=== PATIENT | male | born 1965 | race Hispanic/Latino ===

== ENCOUNTER 2017-08-29 17:02 | Inpatient (IN) | payer MEDICARE, OTHER ==
--- NOTE | 2017-08-29 17:19 | C.PDOC ---
History Of Present Illness 51 YO MALE REQUESTING DETOX FROM HEROIN, CRACK-COCAINE, AND ETOH. PT REPORTS USING HEROIN AND DRINKING ETOH THIS MORNING. PT C/O HEROIN AND ALCOHOL WITHDRAWAL SYMPTOMS. NO SI/HI. DENIES ANY OTHER COMPLAINTS. Time Seen by Provider: 08/29/17 17:19 Chief Complaint (Nursing): Substance Abuse History Per: Patient History/Exam Limitations: no limitations Current Symptoms Are (Timing): Still Present Modifying Factor(s): Alcohol, Marijuana, Narcotics, Crack Associated Symptoms: denies: Suicidal Thoughts, Suicidal Plan Recent travel outside of the [place]: No Past Medical History Reviewed: Historical Data, Nursing Documentation, Vital Signs Vital Signs: Last Vital Signs Temp 97.7 F 08/29/17 17:06 Pulse 80 08/29/17 18:09 Resp 18 08/29/17 18:09 BP 106/59 L 08/29/17 18:09 Pulse Ox 97 08/29/17 18:09 - Medical History PMH: Anxiety Family History: States: Unknown Family Hx - Social History Hx Alcohol Use: Yes Hx Substance Use: Yes - Immunization History Hx Tetanus Toxoid Vaccination: Yes Hx Influenza Vaccination: No Hx Pneumococcal Vaccination: No Review Of Systems Except As Marked, All Systems Reviewed And Found Negative. Constitutional: Negative for: Fever Cardiovascular: Negative for: Chest Pain Respiratory: Negative for: Cough, Shortness of Breath, Wheezing Gastrointestinal: Negative for: Nausea, Vomiting, Abdominal Pain Skin: Negative for: Rash Psych: Positive for: Withdrawal Physical Exam - Physical Exam Appears: Non-toxic, No Acute Distress Skin: Normal Color, Warm, Dry Head: Atraumatic, Normacephalic Oral Mucosa: Moist Chest: Symmetrical Cardiovascular: Rhythm Regular Respiratory: Normal Breath Sounds, No Rales, No Rhonchi, No Wheezing Gastrointestinal/Abdominal: Soft, No Tenderness, No Guarding, No Rebound Back: Normal Inspection Extremity: Normal ROM, Capillary Refill (< 2 SEC.) Neurological/Psych: Oriented x3, Other (PSYCH: MILD WITHDRAWAL SX, CALM, COOPERATIVE. ) ED Course And Treatment - Laboratory Results Result Diagrams: 08/29/17 17:46 08/29/17 17:46 O2 Sat by Pulse Oximetry: 97 (RA) Pulse Ox Interpretation: Normal Progress - Re-Evaluation Re-evaluation Note: 08/29/17 17:30 LIBRIUM, CLONIDINE, MOTRIN, ZOFRAN. CRISIS EVAL. Disposition - Disposition Disposition Time: 19:00 Condition: STABLE Forms: [facility] (Kazakh) - Clinical Impression Clinical Impression: Polysubstance abuse - Scribe Statement The provider has reviewed the documentation as recorded by the Scribe SM All medical record entries made by the Scribe were at my direction and personally dictated by me. I have reviewed the chart and agree that the record accurately reflects my personal performance of the history, physical exam, medical decision making, and the department course for this patient. I have also personally directed, reviewed, and agree with the discharge instructions and disposition. Physician Patient Turnover Patient Signed Over To: Vimal Batista Handoff Comments: BORIS MCCAIN
[2017-08-29 17:56] LABS: BASO # 0.1 K/uL (0.0-0.2); BASO % 0.5 % (0.0-2.0); EOS # 0.1 K/uL (0.0-0.7); EOS % 0.6 % (0.0-4.0); HEMATOCRIT 43.8 % (35.0-51.0); LYMPH # 2.1 K/uL (1.0-4.3); LYMPH % 17.7 % (20.0-40.0); MEAN CELL VOLUME 91.2 fL (80.0-94.0); MEAN CORPUSCULAR HGB CONC 32.9 g/dL (33.0-37.0); MEAN PLATELET VOLUME 7.5 fL (7.2-11.7); MONO # 0.8 K/uL (0.0-0.8); MONO % 6.6 % (0.0-10.0); NRBC % 0.1 % (0.0-2.0); RED CELL DISTRIBUTION WIDTH 14.2 % (11.5-14.5); WHITE BLOOD COUNT 11.6 K/uL (4.8-10.8)
[2017-08-29 18:12] LABS: CHLORIDE 100 mmol/L (98-107)
[2017-08-29 18:13] LABS: SODIUM 136 mmol/L (132-148)
[2017-08-29 18:14] LABS: POTASSIUM 3.6 mmol/L (3.6-5.2)
[2017-08-29 18:16] LABS: ALB/GLOB RATIO 1.3 (1.0-2.1); ALKALINE PHOSPHATASE 112 U/L (38-126); ALT/SGPT 38 U/L (21-72); AST/SGOT 38 U/L (17-59); BILIRUBIN,TOTAL 0.6 mg/dL (0.2-1.3); BLOOD UREA NITROGEN 19 mg/dL (9-20); CALCIUM 8.3 mg/dl (8.6-10.4); CARBON DIOXIDE 25 mmol/L (22-30); GFR AFRICAN-AMERICAN > 60; GLUCOSE,RANDOM 77 mg/dL (75-110); TOTAL PROTEIN 7.4 g/dL (6.3-8.3)
[2017-08-29 18:17] LABS: ALCOHOL SERUM 76 mg/dl (0-10)
[2017-08-29 22:07] LABS: RBC URINE < 1 /hpf (0-3); URINE BACTERIA RARE (<OCC); URINE BILIRUBIN NEGATIVE (NEGATIVE); URINE BLOOD NEGATIVE (NEGATIVE); URINE CALCIUM OXALATE CRYSTALS RARE /hpf (<OCC); URINE COLOR Yellow (YELLOW); URINE GLUCOSE (UA) NORMAL (Normal); URINE KETONE TRACE mg/dL (NEGATIVE); URINE LEUKOCYTE ESTERASE NEG Leu/uL (Negative); URINE PROTEIN NEGATIVE (NEGATIVE); WBC URINE 2 /hpf (0-5)
--- NOTE | 2017-08-30 00:31 | PCM.BM ---
<Carmen Hensley M - Last Filed: 08/30/17 00:30> Treatment Plan Problems - Problems identified on initial assessmt Ineffective Coping Skills Date Initiated: 08/30/17 Time Initiated: 00:30 Assessment reference: NA Status: Active Treatment assets and liabiliti Patient Assests: ADL independent Patient Liabilities: substance abuse - Milieu Protocol Maintain good personal hygiene: daily Encourage regular showers, daily Remind patient to perform daily oral care, other Assist patient to perform ADL's Maintain personal safety: every shift Educate patient to report safety concerns to staff, every shift Monitor environment for contraband/sharps Medication safety: Monitor for expected outcome, potential side effects: every shift, Assess barriers to learning: every shift, Assess readiness for medication education: every shift <Radha Grant - Last Filed: 08/30/17 13:23> - Diagnosis (1) Opioid use disorder, severe, dependence Status: Acute Interventions: 08/30/17 13:23 * Assess 7x/week regarding severity of withdrawal * Educate regarding risks, benefits, side effects and alternatives of medications * Use Motivational Interviewing for abstinence * Use CBT for relapse prevention * Medication management for withdrawal symptoms * Encourage medication assisted treatment * (2) Alcohol use disorder, severe, dependence Status: Acute Interventions: 08/30/17 13:23 * Assess 7x/week regarding severity of withdrawal * Educate regarding risks, benefits, side effects and alternatives of medications * Use Motivational Interviewing for abstinence * Use CBT for relapse prevention * Medication management for withdrawal symptoms * Encourage medication assisted treatment *
[2017-08-30] MEDS ORDERED: Aluminum Hydroxide/Magnesium Hydroxide Susp (30 mL) PO PRN (10:20)
[2017-08-30] MEDS: Multiple Vitamins Tab PO SCH (11:03)
--- NOTE | 2017-08-30 14:28 | PCM.PSYCH ---
Initial Psychiatric Evaluation - Initial Psychiatric Evaluation Type of Admission: Voluntary Legal Status: Capacity Chief Complaint (in patient's own words): "Heroin and alcohol" History of Present Illness and Precipitating Events: The pt is seen, chart reviewed, case discussed with staff. Patient is a 52 YO unemployed male who lives with his mother in [place]. Patient has a girlfriend and 2 children ages 11 and 13 who stay with their mother. Girlfriend is not sober. Patient reports using 15 bags of IV heroin per day for the last 10 years. Patient also reports 1/2 pint of alcohol per day for a "couple of years." Patient uses cocaine, intra-nasally, IV, and smoking for a number of years. Patient admits to 1-2 Xanax/day. Patient reports marijuana use, last use was a few days ago. Patient smokes 1 pack of cigarettes per day. Patient tried detox once before about 20 years ago. Patient tried rehab 5 years ago. He was attending methadone clinic [facility] until he went to custodial. Patient is currently on probation. Patient was abstinent from drugs and alcohol for 11 months, his longest period sober. Patient appeared to be experiencing withdrawal symptoms during interview. Patient also appeared drowsy and lethargic. Psych hx: denies PMH: +hep C Family hx: denies Current Medications: Active Medications Generic Name Dose Route Start Last Admin Trade Name Freq PRN Reason Stop Dose Admin Al Hydrox/Mg Hydrox/Simethicone 30 ml 08/30/17 10:20 Maalox 30 Ml PO TID PRN Indigestion / Heartburn Chlordiazepoxide 25 mg 08/30/17 10:19 Librium PO Q4H PRN Alcohol Withdrawal Chlordiazepoxide 25 mg 08/30/17 12:00 08/30/17 11:03 Librium PO 09/03/17 11:59 25 mg Q6 MARÍA Administration Taper Clonidine HCl 0.1 mg 08/30/17 10:19 Catapres PO Q4H PRN Symptoms of alcohol withdrawl Folic Acid 1 mg 08/30/17 10:30 08/30/17 11:03 Folic Acid PO 1 mg DAILY MARÍA Administration Gabapentin 400 mg 08/30/17 14:00 08/30/17 14:20 Neurontin PO 400 mg TID MARÍA Administration Hydroxyzine HCl 50 mg 08/30/17 10:21 Atarax PO Q6H PRN Anxiety Ibuprofen 600 mg 08/30/17 10:21 Motrin Tab PO Q6H PRN Pain, moderate (4-7) Loperamide HCl 2 mg 08/30/17 10:20 Imodium PO Q8 PRN Diarrhea Methadone HCl 10 mg 08/30/17 17:00 Methadone PO 08/30/17 17:01 ONCE ONE Methadone HCl 25 mg 08/31/17 10:00 Methadone PO 09/05/17 09:59 Q24H MARÍA Taper Multivitamins 1 tab 08/30/17 10:30 08/30/17 11:03 Hexavitamin PO 1 tab DAILY MARÍA Administration Nicotine 1 patch 08/30/17 11:30 08/30/17 12:05 Nicoderm Cq TD 1 patch DAILY MARÍA Administration Ondansetron HCl 4 mg 08/30/17 10:20 Zofran Tab PO Q8 PRN Nausea/Vomiting Thiamine HCl 100 mg 08/30/17 10:30 08/30/17 11:03 Vitamin B1 Tab PO 100 mg DAILY MARÍA Administration Trazodone HCl 50 mg 08/30/17 10:19 Desyrel PO HS PRN Insomnia Past Psychiatric History - Past Psychiatric History Previous Treatment History: None History of ETOH/Drug Use: See HPI Pertinent Medical Hx (Current Medical&Sleep Prob, Allergies): Allergies Allergy/AdvReac Type Severity Reaction Status Date / Time No Known Allergies Allergy Verified 08/29/17 17:10 No Known Home Med 08/29/17 PMH: +HEP C Review of Systems - Review of Systems Systems not reviewed;Unavailable: Acuity of Condition - Psychiatric Psychiatric: As Per HPI, Difficulty Concentrating Mental Status Examination - Personal Presentation Personal Presentation: Looks older than stated age - Affect Affect: Constricted - Motor Activity Motor Activity: Calm - Reliability in Providing Information Reliability in Providing Information: Fair - Speech Speech: Organized - Mood Mood: Neutral - Formal Thought Process Formal Thought Process: No Impairment - Obsessions/Compulsions Obsessions: None Compulsions: None - Cognitive Functions Orientation: Person, Place, Situation, Time Sensorium: Drowsy, Lethargic Estimate of Intelligence: Average Judgement: Intact, as evidence by: Insight regarding need for hospitalization Memory: Recent intact, as evidence by: Ability to recall events of the day - Risk Risk: Withdrawal, Falls DSM 5 DX - DSM 5 DSM 5 Diagnosis: Opioid use disorder severe Alcohol use disorder severe Cocaine use disorder severe Opioid withdrawal Alcohol withdrawal Cocaine withdrawal - Recommended/Plan of Treatment Treatment Recommendations and Plan of Treatment: Methadone detox Librium detox for alcohol As needed medications Gabapentin for augmentation Nicotine patch for smoking cessation. Attend groups and activities Supportive therapy and psychoeducation CO for abstinence CBT for relapse prevention Encourage MAT Refer to rehab or IOP Attend self-help groups as well 34 min Projected ELOS: 5-6 days Prognosis: good with treatment - Smoking Cessation Smoking Cessation Initiated: Yes
[2017-08-31] MEDS: Multiple Vitamins Tab PO SCH (09:49)
--- NOTE | 2017-08-31 13:09 | PCM.PYCHPN ---
Psychiatric Progress Note - Psychiatric Progress Note Patient seen today, length of contact: 16 mins Patient Chief Complaint: "I feel alright " Problems Identified/Issues Discussed: Patient appears less drowsy and more alert. The pt is seen, chart reviewed, case discussed with staff. Support given, CBT, and AR used briefly Improving slowly and needs more time. No SEs from medications, risks discussed. After care discussed- patient wants to go to inpatient rehab . Medication Change: Yes (detox changes daily ) Medical Record Reviewed: Yes Mental Status Examination - Cognitive Function Orientation: Person, Place, Situation, Time Attention: WNL Concentration: WNL Association: WNL Fund of Knowledge: WNL - Mood Mood: Neutral - Affect Affect: Constricted - Speech Speech: Appropriate - Language Language: Word Retrieval - Formal Thought Process Formal Thought Process: No Impairment - Suicidal Ideation Suicidal Ideation: No - Homicidal Ideation Homicidal Ideation: No Goal/Treatment Plan - Goal/Treatment Plan Need for Continued Stay: Remain at risks for inpatient hospitalization, Discharge may exacerbated symptoms Progress Toward Problem(s) and Goals/Treatment Plan: continue methadone detox continue medications support and psychoeducation daily attend groups and activities daily after care planning by Sean - Smoking Cessation Smoking Cessation Initiated: Yes
[2017-09-01] MEDS: Multiple Vitamins Tab PO SCH (09:03)
--- NOTE | 2017-09-01 14:13 | PCM.PYCHPN ---
Psychiatric Progress Note - Psychiatric Progress Note Patient seen today, length of contact: 16 mins Patient Chief Complaint: "I don't feel well" Problems Identified/Issues Discussed: Patient appears less drowsy and more alert. Patient was tearful about the choices he has made. The pt is seen, chart reviewed, case discussed with staff. Support given, CBT, and OK used briefly Improving slowly and needs more time. No SEs from medications, risks discussed. After care discussed- patient wants to try short term inpatient rehab . Medication Change: Yes (detox changes daily ) Medical Record Reviewed: Yes Mental Status Examination - Cognitive Function Orientation: Person, Place, Situation, Time Attention: WNL Concentration: WNL Association: WNL Fund of Knowledge: WNL - Mood Mood: Depressed (tearful ) - Affect Affect: Constricted - Speech Speech: Appropriate - Language Language: Word Retrieval - Formal Thought Process Formal Thought Process: No Impairment - Suicidal Ideation Suicidal Ideation: No - Homicidal Ideation Homicidal Ideation: No Goal/Treatment Plan - Goal/Treatment Plan Need for Continued Stay: Remain at risks for inpatient hospitalization, Discharge may exacerbated symptoms, Severe functional impairment Progress Toward Problem(s) and Goals/Treatment Plan: continue methadone detox continue medications support and psychoeducation daily attend groups and activities daily after care planning by Sean
[2017-09-01 17:21] VITALS: RESP 18
--- NOTE | 2017-09-01 19:08 | RAD ---
HISTORY: Discharge requirement COMPARISON: No prior. TECHNIQUE: Chest PA and lateral FINDINGS: LUNGS: No evidence of focal infiltrate or consolidation in the lungs. PLEURA: No significant pleural effusion identified. No pneumothorax apparent. CARDIOVASCULAR: Normal. OSSEOUS STRUCTURES: No significant abnormalities. VISUALIZED UPPER ABDOMEN: Normal. OTHER FINDINGS: None. IMPRESSION: No active disease.
[2017-09-02] MEDS: Multiple Vitamins Tab PO SCH (09:22)
--- NOTE | 2017-09-02 10:32 | PCM.PYCHPN ---
Psychiatric Progress Note - Psychiatric Progress Note Patient seen today, length of contact: 16 mins Patient Chief Complaint: I am still withdrawing . Problems Identified/Issues Discussed: Patient seen and evaluated, chart reviewed and discussed with the nurse. The patient reports improvement in his mood but still reports withdrawal symptoms including shakes, anxiety, headaches and sweating. As per the nurse patient is improving but still reports of anxiety. Patient has some anxiety and denies any suicidal ideation or homicidal ideation. Patient is taking medications and denies any side effects. He needs more time to stabilize. He received methadone 15 mg daily Supportive therapy and psychoeducation were given. Medication Change: Yes (detox changes daily ) Medical Record Reviewed: Yes Mental Status Examination - Cognitive Function Orientation: Person, Place, Situation, Time Attention: WNL Concentration: WNL Association: WNL Fund of Knowledge: WNL - Mood Mood: Depressed (tearful ) - Affect Affect: Constricted - Speech Speech: Appropriate - Language Language: Word Retrieval - Formal Thought Process Formal Thought Process: No Impairment - Suicidal Ideation Suicidal Ideation: No - Homicidal Ideation Homicidal Ideation: No Goal/Treatment Plan - Goal/Treatment Plan Need for Continued Stay: Remain at risks for inpatient hospitalization, Discharge may exacerbated symptoms, Severe functional impairment Progress Toward Problem(s) and Goals/Treatment Plan: continue methadone detox continue medications support and psychoeducation daily attend groups and activities daily after care planning by - Smoking Cessation Smoking Cessation Initiated: No
[2017-09-02 11:43] LABS: CHLORIDE 96 mmol/L (98-107); POTASSIUM 4.8 mmol/L (3.6-5.2); SODIUM 131 mmol/L (132-148)
[2017-09-02 11:45] LABS: ALB/GLOB RATIO 0.9 (1.0-2.1); ALKALINE PHOSPHATASE 105 U/L (38-126); ALT/SGPT 41 U/L (21-72); AST/SGOT 26 U/L (17-59); BILIRUBIN,TOTAL 0.4 mg/dL (0.2-1.3); BLOOD UREA NITROGEN 18 mg/dL (9-20); CARBON DIOXIDE 26 mmol/L (22-30); GFR AFRICAN-AMERICAN > 60; TOTAL PROTEIN 8.5 g/dL (6.3-8.3)
[2017-09-02 11:46] LABS: CALCIUM 9.1 mg/dl (8.6-10.4); GLUCOSE,RANDOM 96 mg/dL (75-110); MAGNESIUM 1.8 mg/dL (1.6-2.3); PHOSPHOROUS 2.3 mg/dL (2.5-4.5)
[2017-09-02 11:56] LABS: VITAMIN D 25 OH TOTAL 24.3 NG/ML (30.0-100.0)
[2017-09-02 12:15] LABS: THYROID STIMULATING HORMONE 1.76 mIU/L (0.46-4.68)
[2017-09-02] MEDS: Tmp-Smz 800 mg-160 mg DS Tab PO SCH (13:14)
--- NOTE | 2017-09-02 13:16 | CP.PCM.CON ---
History of Present Illness - History of Present Illness History of Present Illness: Medicine H/P CC: R. Knee Abscess HPI: Patient is a 51 year old male with PMH of polysubstance abuse presents with low grade fever and abscess located medial to the right knee. Patient is currently in the detox unit for heroin and alcohol abuse. Patient states the abscess has been present for 3-4 days. A sharp pain occurs around the abscess when he gets up from a sitting position. The pain lasts for a few seconds and does not radiate. Patient reports using heroin around the abscess area. Patient states he had similar abscess for the past 1.5 year but located in different extremities. Patient reports chills and low grade fever this morning but felt better after methadone was administered. Patient denies chest pain and problem with ambulation. ROS: General: Admits to fever, chills, headache, dizziness. Ears: Admits to discharge from left ear. CV: Denies chest pain or palpitation. Lungs: Denies SOB. GI: Denies abd pain, nausea, vomiting, constipation, or diarrhea. PMH: polysubstance abuse FH: mother had quadruple bypass SH: * unemployed * Tobacco: 1 ppd for 41 years. * Alcohol: _ pint of vodka and 6-12 beers a day. * Admits to heroin, crack, cocaine, marijuana abuse. Meds: none Allergies: NKDA ROS: General: Admits to fever, chills, headache, dizziness. Ears: Admits to discharge from left ear. CV: Denies chest pain or palpitation. Lungs: Denies SOB. GI: Denies abd pain, nausea, vomiting, constipation, or diarrhea. Review of Systems - Review of Systems Review of Systems: per hpi Past Patient History - Past Medical History & Family History Past Medical History?: Yes - Past Social History Smoking Status: Heavy Smoker > 10 Cigarettes Daily - CARDIAC Hx Cardiac Disorders: No Hx Hypertension: No - PULMONARY Hx Respiratory Disorders: No Hx Tuberculosis: No - NEUROLOGICAL Hx Neurological Disorder: No HX Cerebrovascular Accident: No Hx Seizures: No - HEENT Hx HEENT Problems: No - RENAL Hx Chronic Kidney Disease: No - ENDOCRINE/METABOLIC Hx Endocrine Disorders: No - HEMATOLOGICAL/ONCOLOGICAL Hx Blood Disorders: No Hx Cancer: No Hx Human Immunodeficiency Virus (HIV): No - INTEGUMENTARY Hx Dermatological Problems: No - MUSCULOSKELETAL/RHEUMATOLOGICAL Hx Falls: Yes - GASTROINTESTINAL Hx Gastrointestinal Disorders: No - GENITOURINARY/GYNECOLOGICAL Hx Genitourinary Disorders: No Hx Sexually Transmitted Disorders: No - PSYCHIATRIC Hx Substance Use: Yes - SURGICAL HISTORY Hx Surgeries: Yes Hx Orthopedic Surgery: Yes (RIGHT ANKLE) - ANESTHESIA Hx Anesthesia: Yes Hx Anesthesia Reactions: No Hx Malignant Hyperthermia: No Has any member of the family had a problem w/ anesthesia?: No Meds Allergies/Adverse Reactions: Allergies Allergy/AdvReac Type Severity Reaction Status Date / Time No Known Allergies Allergy Verified 08/29/17 17:10 - Medications Medications: Current Medications Al Hydrox/Mg Hydrox/Simethicone (Maalox 30 Ml) 30 ml PO TID PRN PRN Reason: Indigestion / Heartburn Chlordiazepoxide (Librium) 25 mg PO Q4H PRN PRN Reason: Alcohol Withdrawal Last Admin: 09/02/17 05:29 Dose: 25 mg Chlordiazepoxide (Librium) 25 mg PO DAILY REPLACED BY [facility] PRN Reason: Taper Stop: 09/03/17 11:59 Last Admin: 09/02/17 09:23 Dose: 25 mg Clonidine HCl (Catapres) 0.1 mg PO Q4H PRN PRN Reason: Symptoms of alcohol withdrawl Folic Acid (Folic Acid) 1 mg PO DAILY REPLACED BY [facility] Last Admin: 09/02/17 09:23 Dose: 1 mg Gabapentin (Neurontin) 400 mg PO TID REPLACED BY [facility] Last Admin: 09/02/17 09:23 Dose: 400 mg Hydroxyzine HCl (Atarax) 50 mg PO Q6H PRN PRN Reason: Anxiety Last Admin: 09/01/17 01:19 Dose: 50 mg Ibuprofen (Motrin Tab) 600 mg PO Q6H PRN PRN Reason: Pain, moderate (4-7) Last Admin: 09/02/17 10:05 Dose: 600 mg Loperamide HCl (Imodium) 2 mg PO Q8 PRN PRN Reason: Diarrhea Methadone HCl (Methadone) 15 mg PO Q24H REPLACED BY [facility] PRN Reason: Taper Stop: 09/05/17 09:59 Last Admin: 09/02/17 09:23 Dose: 15 mg Multivitamins (Hexavitamin) 1 tab PO DAILY REPLACED BY [facility] Last Admin: 09/02/17 09:22 Dose: 1 tab Nicotine (Nicoderm Cq) 1 patch TD DAILY REPLACED BY [facility] Last Admin: 09/02/17 09:21 Dose: 1 patch Ondansetron HCl (Zofran Tab) 4 mg PO Q8 PRN PRN Reason: Nausea/Vomiting Last Admin: 09/02/17 05:29 Dose: 4 mg Quetiapine Fumarate (Seroquel) 100 mg PO HS REPLACED BY [facility] Last Admin: 09/01/17 22:22 Dose: 100 mg Thiamine HCl (Vitamin B1 Tab) 100 mg PO DAILY REPLACED BY [facility] Last Admin: 09/02/17 09:23 Dose: 100 mg Trazodone HCl (Desyrel) 100 mg PO HS PRN PRN Reason: Insomnia Last Admin: 09/01/17 22:22 Dose: 100 mg Trimethoprim/Sulfamethoxazole (Bactrim Ds Tab) 1 tab PO Q12H REPLACED BY [facility] Stop: 09/11/17 12:20 Physical Exam - Constitutional Appears: Well, Non-toxic, No Acute Distress - Head Exam Head Exam: ATRAUMATIC, NORMAL INSPECTION, NORMOCEPHALIC - Eye Exam Eye Exam: EOMI Pupil Exam: NORMAL ACCOMODATION - ENT Exam ENT Exam: Mucous Membranes Moist - Neck Exam Neck exam: Positive for: Normal Inspection - Respiratory Exam Respiratory Exam: Clear to Auscultation Bilateral, NORMAL BREATHING PATTERN - Cardiovascular Exam Cardiovascular Exam: REGULAR RHYTHM - GI/Abdominal Exam GI & Abdominal Exam: Normal Bowel Sounds, Soft. absent: Distended, Tenderness - Extremities Exam Extremities exam: Positive for: tenderness (mild tenderness to palpation of right kneww at fluid collection. Increased warmth and erythema. Fluctuance. ). Negative for: joint swelling - Back Exam Back exam: absent: CVA tenderness (L), CVA tenderness (R) - Neurological Exam Neurological exam: Alert, Normal Gait, Oriented x3 - Psychiatric Exam Psychiatric exam: Normal Affect, Normal Mood - Skin Skin Exam: Dry, Intact, Warm Additional comments: areas of hypopigmentation Results - Vital Signs Recent Vital Signs: Last Vital Signs Temp 99.3 F 09/02/17 09:56 Pulse 100 H 09/02/17 09:56 Resp 18 09/02/17 09:56 BP 126/76 09/02/17 09:56 Pulse Ox 95 09/02/17 09:56 - Labs Result Diagrams: 08/29/17 17:46 09/02/17 11:13 Labs: Laboratory Results - last 24 hr 09/02/17 09/02/17 11:13 11:13 Sodium 131 L Potassium 4.8 Chloride 96 L Carbon Dioxide 26 Anion Gap 14 BUN 18 Creatinine 0.7 L Est GFR ( Amer) > 60 Est GFR (Non-Af Amer) > 60 Random Glucose 96 Calcium 9.1 Phosphorus 2.3 L Magnesium 1.8 Total Bilirubin 0.4 AST 26 ALT 41 Alkaline Phosphatase 105 Total Protein 8.5 H Albumin 4.1 Globulin 4.4 H Albumin/Globulin Ratio 0.9 L Vitamin B12 362 25-OH Vitamin D Total 24.3 L TSH 3rd Generation 1.76 Assessment & Plan (1) Abscess of knee, right Assessment and Plan: Bactrim DS 1 Tab PO Q12 x 10 days warm compress Q2 consider I/D later today or tomorrow Status: Acute Priority: Medium
[2017-09-03] MEDS: Tmp-Smz 800 mg-160 mg DS Tab PO SCH ×2 (01:27→13:08)
[2017-09-03] MEDS: Multiple Vitamins Tab PO SCH (09:22)
[2017-09-03] MEDS ORDERED: Ergocalciferol 50,000 Intl Units Cap PO SCH (10:00)
--- NOTE | 2017-09-03 10:57 | PCM.PYCHPN ---
Psychiatric Progress Note - Psychiatric Progress Note Patient seen today, length of contact: 16 mins Patient Chief Complaint: "I am feeling little better.' Problems Identified/Issues Discussed: Patient seen and evaluated, chart reviewed and discussed with the nurse. Pt was seen by the medical doctor yesterday for the skin rash. He reports some improvement in his withdrawal symptoms but still reports anxiety, headaches and sweating. He denies any suicidal ideation or homicidal ideation. Patient is taking medications and denies any side effects. He received methadone 10 mg today. He needs more time to stabilize. Supportive therapy and psychoeducation were given. Medication Change: Yes (detox changes daily ) Medical Record Reviewed: Yes Mental Status Examination - Cognitive Function Orientation: Person, Place, Situation, Time Attention: WNL Concentration: WNL Association: WNL Fund of Knowledge: WNL - Mood Mood: Depressed (tearful ) - Affect Affect: Constricted - Speech Speech: Appropriate - Language Language: Word Retrieval - Formal Thought Process Formal Thought Process: No Impairment - Suicidal Ideation Suicidal Ideation: No - Homicidal Ideation Homicidal Ideation: No Goal/Treatment Plan - Goal/Treatment Plan Need for Continued Stay: Remain at risks for inpatient hospitalization, Discharge may exacerbated symptoms, Severe functional impairment Progress Toward Problem(s) and Goals/Treatment Plan: continue methadone detox continue medications support and psychoeducation daily attend groups and activities daily after care planning by - Smoking Cessation Smoking Cessation Initiated: No
--- NOTE | 2017-09-03 11:44 | CP.PCM.PN ---
<Naveen Griggs - Last Filed: 09/03/17 13:33> Subjective - Date & Time of Evaluation Date of Evaluation: 09/03/17 Time of Evaluation: 11:40 - Subjective Subjective: Patient seen and examined at bedside. Doing well with no complaints at this time. Knee pain has improved significantly Denies fevers or chills We will sign off at this time. Objective - Vital Signs/Intake and Output Vital Signs (last 24 hours): Temp Pulse Resp BP Pulse Ox 98.0 F 96 H 18 111/69 96 09/03/17 09:00 09/03/17 09:00 09/03/17 09:00 09/03/17 09:00 09/03/17 09:00 - Medications Medications: Current Medications Al Hydrox/Mg Hydrox/Simethicone (Maalox 30 Ml) 30 ml PO TID PRN PRN Reason: Indigestion / Heartburn Chlordiazepoxide (Librium) 25 mg PO Q4H PRN PRN Reason: Alcohol Withdrawal Last Admin: 09/02/17 21:06 Dose: 25 mg Chlordiazepoxide (Librium) 25 mg PO DAILY [facility] PRN Reason: Taper Stop: 09/03/17 11:59 Last Admin: 09/03/17 09:22 Dose: 25 mg Clonidine HCl (Catapres) 0.1 mg PO Q4H PRN PRN Reason: Symptoms of alcohol withdrawl Ergocalciferol (Drisdol 50,000 Intl Units Cap) 1 cap PO Q7D [facility] Last Admin: 09/03/17 09:26 Dose: 1 cap Folic Acid (Folic Acid) 1 mg PO DAILY [facility] Last Admin: 09/03/17 09:23 Dose: 1 mg Gabapentin (Neurontin) 400 mg PO TID [facility] Last Admin: 09/03/17 09:22 Dose: 400 mg Hydroxyzine HCl (Atarax) 50 mg PO Q6H PRN PRN Reason: Anxiety Last Admin: 09/01/17 01:19 Dose: 50 mg Ibuprofen (Motrin Tab) 600 mg PO Q6H PRN PRN Reason: Pain, moderate (4-7) Last Admin: 09/02/17 21:06 Dose: 600 mg Loperamide HCl (Imodium) 2 mg PO Q8 PRN PRN Reason: Diarrhea Methadone HCl (Methadone) 10 mg PO Q24H [facility] PRN Reason: Taper Stop: 09/05/17 09:59 Last Admin: 09/03/17 09:23 Dose: 10 mg Multivitamins (Hexavitamin) 1 tab PO DAILY [facility] Last Admin: 09/03/17 09:22 Dose: 1 tab Nicotine (Nicoderm Cq) 1 patch TD DAILY [facility] Last Admin: 09/03/17 09:23 Dose: 1 patch Ondansetron HCl (Zofran Tab) 4 mg PO Q8 PRN PRN Reason: Nausea/Vomiting Last Admin: 09/03/17 09:22 Dose: 4 mg Quetiapine Fumarate (Seroquel) 100 mg PO HS [facility] Last Admin: 09/02/17 21:06 Dose: 100 mg Thiamine HCl (Vitamin B1 Tab) 100 mg PO DAILY [facility] Last Admin: 09/03/17 09:22 Dose: 100 mg Trazodone HCl (Desyrel) 100 mg PO HS PRN PRN Reason: Insomnia Last Admin: 09/02/17 21:06 Dose: 100 mg Trimethoprim/Sulfamethoxazole (Bactrim Ds Tab) 1 tab PO Q12H [facility] Stop: 09/11/17 12:20 Last Admin: 09/03/17 01:27 Dose: 1 tab - Labs Labs: 08/29/17 17:46 09/02/17 11:13 - Additional Findings Additional findings: - Constitutional Appears: Well, Non-toxic, No Acute Distress - Head Exam Head Exam: ATRAUMATIC, NORMAL INSPECTION, NORMOCEPHALIC - Eye Exam Eye Exam: EOMI Pupil Exam: NORMAL ACCOMODATION - ENT Exam ENT Exam: Mucous Membranes Moist - Neck Exam Neck exam: Positive for: Normal Inspection - Respiratory Exam Respiratory Exam: Clear to Auscultation Bilateral, NORMAL BREATHING PATTERN - Cardiovascular Exam Cardiovascular Exam: REGULAR RHYTHM - GI/Abdominal Exam GI & Abdominal Exam: Normal Bowel Sounds, Soft. absent: Distended, Tenderness - Extremities Exam Extremities exam: Positive for: tenderness (mild tenderness to palpation of right kneww at fluid collection. Increased warmth and erythema. Fluctuance. ). Negative for: joint swelling - Back Exam Back exam: absent: CVA tenderness (L), CVA tenderness (R) - Neurological Exam Neurological exam: Alert, Normal Gait, Oriented x3 - Psychiatric Exam Psychiatric exam: Normal Affect, Normal Mood - Skin Skin Exam: Dry, Intact, Warm Additional comments: areas of hypopigmentation Assessment and Plan (1) Abscess of knee, right Assessment & Plan: Abscess of knee, right Assessment and Plan: Bactrim DS 1 Tab PO Q12 x 10 days warm compress Q2 Signing off, Please reconsult if necessary Status: Acute Priority: Medium Status: Acute <AnaDavin H - Last Filed: 09/03/17 13:46> Objective - Vital Signs/Intake and Output Vital Signs (last 24 hours): Temp Pulse Resp BP Pulse Ox 98.0 F 96 H 18 111/69 96 09/03/17 09:00 09/03/17 09:00 09/03/17 09:00 09/03/17 09:00 09/03/17 09:00 - Medications Medications: Current Medications Al Hydrox/Mg Hydrox/Simethicone (Maalox 30 Ml) 30 ml PO TID PRN PRN Reason: Indigestion / Heartburn Chlordiazepoxide (Librium) 25 mg PO Q4H PRN PRN Reason: Alcohol Withdrawal Last Admin: 09/03/17 13:10 Dose: 25 mg Clonidine HCl (Catapres) 0.1 mg PO Q4H PRN PRN Reason: Symptoms of alcohol withdrawl Ergocalciferol (Drisdol 50,000 Intl Units Cap) 1 cap PO Q7D [facility] Last Admin: 09/03/17 09:26 Dose: 1 cap Folic Acid (Folic Acid) 1 mg PO DAILY [facility] Last Admin: 09/03/17 09:23 Dose: 1 mg Gabapentin (Neurontin) 400 mg PO TID [facility] Last Admin: 09/03/17 13:08 Dose: 400 mg Hydroxyzine HCl (Atarax) 50 mg PO Q6H PRN PRN Reason: Anxiety Last Admin: 09/01/17 01:19 Dose: 50 mg Ibuprofen (Motrin Tab) 600 mg PO Q6H PRN PRN Reason: Pain, moderate (4-7) Last Admin: 09/02/17 21:06 Dose: 600 mg Loperamide HCl (Imodium) 2 mg PO Q8 PRN PRN Reason: Diarrhea Methadone HCl (Methadone) 10 mg PO Q24H [facility] PRN Reason: Taper Stop: 09/05/17 09:59 Last Admin: 09/03/17 09:23 Dose: 10 mg Multivitamins (Hexavitamin) 1 tab PO DAILY [facility] Last Admin: 09/03/17 09:22 Dose: 1 tab Nicotine (Nicoderm Cq) 1 patch TD DAILY [facility] Last Admin: 09/03/17 09:23 Dose: 1 patch Ondansetron HCl (Zofran Tab) 4 mg PO Q8 PRN PRN Reason: Nausea/Vomiting Last Admin: 09/03/17 09:22 Dose: 4 mg Quetiapine Fumarate (Seroquel) 100 mg PO HS [facility] Last Admin: 09/02/17 21:06 Dose: 100 mg Thiamine HCl (Vitamin B1 Tab) 100 mg PO DAILY [facility] Last Admin: 09/03/17 09:22 Dose: 100 mg Trazodone HCl (Desyrel) 100 mg PO HS PRN PRN Reason: Insomnia Last Admin: 09/02/17 21:06 Dose: 100 mg Trimethoprim/Sulfamethoxazole (Bactrim Ds Tab) 1 tab PO Q12H [facility] Stop: 09/11/17 12:20 Last Admin: 09/03/17 13:08 Dose: 1 tab - Labs Labs: 08/29/17 17:46 09/02/17 11:13 Attending/Attestation - Attestation I have personally seen and examined this patient.: Yes I have fully participated in the care of the patient.: Yes I have reviewed all pertinent clinical information, including history, physical exam and plan: Yes Notes (Text): 09/03/17 13:45 Medical attending: Patient was seen and examamined by me He is able to walk in the hallway without assistance. On exam I pushed out a little bit more clear puss colored discharged however very minimal amount. It does not look like this is something that could be lanced or drained. Please continue the warm compresses as well as continue with the PO bactrim thank you Davin Perez
[2017-09-04] MEDS: Tmp-Smz 800 mg-160 mg DS Tab PO SCH (00:45)
[2017-09-04 08:41] VITALS: BP 105/68; PULSE 92; TEMP 98; O2SAT 99
--- NOTE | 2017-09-04 08:49 | PCM.PYCHDC ---
Mental Status Examination - Mental Status Examination Orientation: Person, Place, Situation, Time Memory: Intact Mood: Neutral Affect: Blunted Speech: Appropriate Attention: WNL Concentration: WNL Association: WNL Fund of Knowledge: WNL Formal Thought Process: No Impairment Description of patient's judgement and insight: appropriate Suicidal Ideation: No Current Homicidal Ideation?: No Discharge Summary - Discharge Note Reason for Hospitalization: opioid , alcohol and cocaine detox Laboratory Data: Abnormal Lab Results 09/02/17 11:13 HIV 1&2 Antibody Screen Negative Consultations:: List each consultation separately and include: 1. Reason for request. 2. Findings. 3. Follow-up Summary of Hospital Course include:: 1. Description of specific treatment plan utilized for patients during their course of treatmen. 2. Summarize the time- course for resolution of acute symptoms and/or regressed behaviors. 3. Describe issues identified and worked on during hospitalization. 4. Describe medication utilized. 5. Describe medical problems identified and treated. 6. Reassessment of suicide risk Summary of Hospital Course: Patient was admitted and started on treatment with psychotherapy, support, psychoeducation and medications including methadone taper, clonidine 1MG po q4h PRN, Lexapro 10mh po daily, neurontin 400mg po TID, atarax 50 mg po q6h prn, trazadone 100mg PO HS, Librium taper, Maalox 30 ml PO TID, Quetiapine 100mg. [place] and CBT used. Patient attended groups and activities, as well as mileu therapy. All the risks and benefits of medications are discussed with patient who understood and agreed. The patient improved with the treatments provided. [facility] - Final Diagnosis (DSM 5) Condition upon Discharge: STABLE DSM 5: Alcohol use disorder severe Opioid use disorder severe cocaine use disorder severe Disposition: REHAB FACILITY/REHAB UNIT Follow-up Treatment Plan: Continue below medications after discharge. use relapse prevention skills and try to stay away from triggers. Please return to ER or call 911 suicidal, homicidal or symptoms relapse. Stay away from tress, alcohol, drugs. See PMD regularly and get labs done. - Antipsychotic Medications Pt discharged on 2 or more routine antipsychotic medications: No
== END 2017-09-04 07:40 | DRG 895 ==
LOC: C.ER 17:02 → C.7D 08-30 00:12
PROC: HZ2ZZZZ Detoxification Services for Substance Abuse Treatment (ICD-10-PCS; principal; 2017-08-30)
PROC: HZ59ZZZ Individual Psychotherapy for Substance Abuse Treatment, Supportive (ICD-10-PCS; 2017-08-30)
PROC: HZ46ZZZ Group Counseling for Substance Abuse Treatment, Psychoeducation (ICD-10-PCS; 2017-08-30)
DX: F11.23 Opioid dependence with withdrawal (principal); F10.239 Alcohol dependence with withdrawal, unspecified; F14.23 Cocaine dependence with withdrawal; L02.415 Cutaneous abscess of right lower limb; F12.10 Cannabis abuse, uncomplicated; F17.210 Nicotine dependence, cigarettes, uncomplicated; F41.9 Anxiety disorder, unspecified; B18.2 Chronic viral hepatitis C; Z91.81 History of falling; Z65.3 Problems related to other legal circumstances